=== PATIENT | male | born 1975 | race American Indian/Alaskan Native ===

== ENCOUNTER 2018-01-15 06:40 | Emergency (ER) | payer SELFPAY ==
[2018-01-15 07:19] VITALS: BP 129/86
--- NOTE | 2018-01-15 08:50 | Emergency Department Report ---
Eye Injury/Foreign Body - HPI Duration: 2 months Eye Location: Left Severity: None Tetanus Status: Up to Date Eye Symptoms: Eye Pain: No, Blurred Vision: No, Eye Redness: No, Grinding/ Hammering Metal: No, Used Eye Protection: No, Contact Lens Use: No, Recalls Injury: No, Photophobia: No Other History: Since a 42-year-old -[place] male who presents with nontender nodule left eyelid for 2 months. Patient stays nodule on left upper eyelid is nontender but continues to swell periodically throughout the day. She states he went to [facility] last month and he was told to apply warm compresses and symptoms would improve. He has been applying warm compresses as instructed from [place] with no improvement of symptoms. Patient denies visual changes, eye injection, swelling, drainage, and pain. ED Review of Systems ROS: Stated complaint: LEFT EYE INFECTED Other details as noted in HPI Constitutional: denies: chills, fever Eyes: other (nontender nodule left upper eyelid). denies: eye pain, eye discharge, vision change Respiratory: denies: cough, shortness of breath, wheezing Cardiovascular: denies: chest pain, palpitations Gastrointestinal: denies: abdominal pain, nausea, diarrhea Skin: lesions (nontender nodule left upper eyelid). denies: rash Neurological: denies: headache, weakness, paresthesias Psychiatric: denies: anxiety, depression ED Past Medical Hx - Past Medical History Previous Medical History?: No - Surgical History Past Surgical History?: No - Social History Smoking Status: Current Every Day Smoker Substance Use Type: None - Medications Home Medications: Home Medications Medication Instructions Recorded Confirmed Last Taken Type Erythromycin Base [Erythromycin] 1 gm OP BID 5 Days #1 oint...g. 01/15/18 Unknown Rx Eye Injury Exam - Exam General: Vital signs noted. No distress. Alert and acting appropriately. - Visual Acuity Left Eye Exam: Both EOMI, Neither Injection, Neither Chemosis, Neither Abnormal Pupil , Neither Eye Foreign Body, Neither Lid Foreign Body, Neither Mucous Discharge, Neither Purulent Discharge, Neither Fluorescein Uptake, Neither Fluorescein Uptake (slit lamp), Neither Cell/Flare (slit lamp), Neither Corneal Edema, Neither Photophobia Exam: Palpable nontender nodule of left upper eyelid ED Course Vital Signs 01/15/18 07:17 Temperature 98.3 F Pulse Rate 60 Respiratory 16 Rate Blood Pressure 129/86 O2 Sat by Pulse 100 Oximetry ED Medical Decision Making - Medical Decision Making This is a 42-year-old -[place] male who presents with a nodule on left upper eyelid. Patient is stable and was examined by me. Vitals normal. Physical assessment susceptible of chalazion. Start erythromycin and follow-up with ophthalmology in 24 hours. Discussed plan with patient and he agreed with plan. Discharged home in stable condition. Follow up with ophthalmology in 24- 48 hours. Critical care attestation.: If time is entered above; I have spent that time in minutes in the direct care of this critically ill patient, excluding procedure time. ED Disposition Clinical Impression: Chalazion left upper eyelid, Eyelid lesion Disposition: TO HOME OR SELFCARE Is pt being admited?: No Does the pt Need Aspirin: No Condition: Stable Instructions: Kierra (ED) Additional Instructions: Use cool compress to left eye to decrease swelling. Avoid rubbing or touching eyes, because rubbing eyes can cause worsening symptoms. Take medication as prescribed. Follow-up with print finisher in 24-48 hours. Return to ER if swelling don't improve or difficulty breathing after 2 days of medication. Prescriptions: Erythromycin Base [Erythromycin] 1 gm OP BID 5 Days #1 oint...g. Referrals: BESSIE RAJAN MD [Staff Physician] - 3-5 Days [facility] [Provider Group] - 3-5 Days [facility] [Outside] - 3-5 Days Forms: Work/School Release Form(ED) Time of Disposition: 08:50 Print Language: YAKUT
== END 2018-01-15 09:08 | disposition home or self-care (01) ==
LOC: ED 06:40
DX: H00.14 Chalazion left upper eyelid (principal); F17.200 Nicotine dependence, unspecified, uncomplicated
CPT/HCPCS: 99282